=== PATIENT | female | born 1990 | race Caucasian/White ===

== ENCOUNTER 2018-06-08 11:20 | Day surgery (SDC) | payer BC, OTHER ==
[2018-06-05 09:56] LABS: HEMATOCRIT 44.1 % (36.0-47.0); HEMOGLOBIN 15.4 g/dL (12.0-15.5); MEAN CORPUSCULAR VOLUME 92 fl (80-97); PLATELET COUNT 245 10^3/uL (150-450); RED BLOOD COUNT 4.82 10^6/uL (3.72-5.28); RED CELL DISTRIBUTION WIDTH 12.5 % (11.5-14.0); WHITE BLOOD COUNT 7.6 10^3/uL (4.0-10.5)
[2018-06-05 10:02] LABS: APPEARANCE,URINE SLIGHTLY-CLOUDY; BILIRUBIN,URINE NEGATIVE (NEGATIVE); COLOR,URINE YELLOW; GLUCOSE, URINE NEGATIVE (NEGATIVE); KETONES,URINE NEGATIVE (NEGATIVE); LEUKOCYTE ESTERASE,URINE NEGATIVE (NEGATIVE); NITRITE,URINE NEGATIVE (NEGATIVE); PROTEIN,URINE NEGATIVE (NEGATIVE); URINE SPECIFIC GRAVITY 1.021; UROBILINOGEN,URINE NEGATIVE mg/dL (<2.0)
[~2018-06-08 11:20] MED LIST: BUPIVACAINE HCL 0.25% /EPINEPHRINE INJ/PF 30 ML SDV ONE
[2018-06-08] MEDS ORDERED: ONDANSETRON HCL INJ/PF 4 MG/2 ML SDV ONE (11:33)
[2018-06-08] MEDS ORDERED: DEXAMETHASONE SOD PHOSPHATE INJ 4 MG/1 ML VIAL ONE (11:33)
[2018-06-08] MEDS ORDERED: FENTANYL CITRATE INJ/PF 100 MCG/2 ML AMPUL ONE (11:33)
[2018-06-08] MEDS ORDERED: PROPOFOL INJ 200 MG/20 ML VIAL IV ONE (11:34)
[2018-06-08] MEDS ORDERED: HYDROMORPHONE HCL INJ/PF 2 MG/ML AMPULE ONE (11:34)
[2018-06-08] MEDS ORDERED: ACETAMINOPHEN 1,000 MG/100 ML RTUPB IV ONE (11:34)
[2018-06-08] MEDS ORDERED: MIDAZOLAM 2 MG/2 ML INJ ONE (11:38)
[2018-06-08] MEDS ORDERED: SILVER SULFADIAZINE 1% CREAM 25 GM ONE (12:03)
[2018-06-08] MEDS ORDERED: DIPHENHYDRAMINE HCL 50 MG/ML VIAL IV PRN (12:13)
[2018-06-08] MEDS ORDERED: OXYCODONE-ACETAMINOPHEN 5-325 MG TABLET PO PRN ×4 (12:13→14:19)
[2018-06-08] MEDS ORDERED: MEPERIDINE HCL/PF INJ 25 MG/1 ML DISP.SYRIN IV PRN (12:13)
[2018-06-08] MEDS ORDERED: PROMETHAZINE HCL INJ 25 MG/1 ML VIAL IV PRN ×2 (12:13)
[2018-06-08] MEDS ORDERED: FENTANYL CITRATE INJ/PF 100 MCG/2 ML AMPUL IV PRN ×3 (12:13)
[2018-06-08] MEDS ORDERED: PROMETHAZINE HCL INJ 25 MG/1 ML VIAL ONE (14:14)
[2018-06-08] MEDS ORDERED: MORPHINE SULFATE 10 MG/ML INJ IM PRN (14:17)
[2018-06-08] MEDS ORDERED: RINGERS SOLUTION,LACTATED 1,000 ML IV PRN (14:17)
[2018-06-08] MEDS ORDERED: IBUPROFEN 800 MG TABLET PO PRN (14:18)
[2018-06-08 16:47] VITALS: BP 110/65
--- NOTE | 2018-08-10 15:10 | OPERATIVE REPORT E ---
Operative Report NAME: MITRA SEARS : 1990 AGE: 28Y DATE OF SURGERY: 06/08/2018 ROOM: PREOPERATIVE DIAGNOSIS: LEFT BARTHOLIN'S GLAND CYST. POSTOPERATIVE DIAGNOSIS: LEFT BARTHOLIN'S GLAND CYST. OPERATION: Bartholin gland excision. SURGEON: FRED ABRAHAM M.D. ANESTHESIA: Dr. Jones with General. FINDINGS: A large 5.5 cm Bartholin cyst on the left labia tracking up into the labia majora. COMPLICATIONS: None. ESTIMATED BLOOD LOSS: 40 mL. SPECIMENS REMOVED: Left Bartholin cyst and gland. PROCEDURE: The patient was taken to the operating room, prepped and draped in normal sterile fashion in the dorsal lithotomy position. Under sterile conditions an in-and-out cath was performed with approximately 30 mL of clear urine. The labia was inspected and the gland was easily locatable due to its size. We then injected approximately 10 mL of lidocaine with epi along the planned incision line. I then used a #15 blade to score the mucosa above the gland and the cyst was easily locatable through the mucosa and it easily dissected away from the mucosa using Metzenbaum's. Following the outline of the cyst, I continued to dissect into the patient's bulbocavernosus muscle as well as the labia, again following the contours of the cyst until the cyst was completely amputatable which was done using Mayos. The cyst was then passed off of the field. The defect was then inspected and found to be quite deep, almost to the patient's gluteus muscle. Therefore, it was decided that I would close this in multiple layers. Beginning at the deepest aspect of the incision, I used 0-Vicryl and closed with several interrupted sutures on the first layer and then using graduated decreasing caliper of Vicryl suture closed the remaining layers. A total of about 5 layers was used, using interrupted stitches for the closure. The skin was then closed using 4-0 Vicryl in a subcuticular fashion. The defect was inspected. It was not swelling. It was watched for several minutes to make sure it was hemostatic and that there was no hematoma forming. The incision line was then covered with Silvadene cream to enhance wound healing. The patient was then taken to recovery in stable condition. Sponge, lap, and needle counts were correct x2. DICTATING PHYSICIAN: FRED ABRAHAM M.D. [id number] PHY#: [id number] ID: [id number] JOB#: [id number] ACCT: [id number] cc:FRED ABRAHAM M.D. >
== END 2018-06-08 17:00 | disposition home or self-care (01) ==
LOC: OROUT 11:20
PROVIDERS: ATTEND Obstetrics & Gynecology
DX: N75.0 Cyst of Bartholin's gland (principal); Z01.818 Encounter for other preprocedural examination
CPT/HCPCS: 36415; 87070; 87205; 85027; 81025; 87075; 81001; 88304 ×2; 56740; J2250; J3490; J1100; J1170; J2550; J2405; J2704; J0131; 940; J3010

== ENCOUNTER → 2019-06-08 | Outpatient (CLI) | payer BC, OTHER ==
--- NOTE | 2019-06-10 18:15 | WOMENS IMAGING REPORT ---
EXAM DESCRIPTION: U/S BREAST UNILATERAL, COMPL COMPLETED DATE/TIME: 06/08/2019 7:38 am REASON FOR STUDY: N64.52 NIPPLE DISCHARGE N64.52 NIPPLE DISCHARGE COMPARISON: None TECHNIQUE: Static and Realtime grayscale interrogation of the entire left breast(s) acquired. Select ed color doppler/spectral images saved to PACS. LIMITATIONS: None. FINDINGS: Masses:No cystic or solid masses identified Architecture:No alteration of normal morphology. No skin thickening. No edema. Other: None. IMPRESSION: No suspicious findings detected by ultrasound. BIRAD: 1 Negative. RECOMMENDATION: RECOMMENDED FOLLOW-UP: Follow-up as clinically indicated. COMMENT: The [employer] ([employer]) has developed recommendations for screening MRI of the breasts in certain patient populations, to be used in conjunction with mammography. Breast MRI s urveillance may be appropriate for women with more than 20% lifetime risk of developing breast cancer as determined by genetic testing, significant family history of the disease, or history of mantle r adiation for Hodgkins Disease. [employer] Practice Guidelines 2008. TECHNICAL DOCUMENTATION: FINDING NUMBER: (1) ASSESSMENT: (1) JOB ID: [id number] [employer]- All Rights Reserved Reading location - IP/workstation name: [email or web address]
== END ==
LOC: WI 07:29
PROVIDERS: ATTEND Midwife
DX: N64.52 Nipple discharge (principal); N64.59 Other signs and symptoms in breast
CPT/HCPCS: 76641

== ENCOUNTER → 2019-08-24 | Outpatient (CLI) | payer BC, OTHER ==
[2019-08-24 10:13] LABS: ABSOLUTE EOSINOPHILS # (AUTO) 0.1 10^3/uL (0.0-0.6); ABSOLUTE LYMPHOCYTES (AUTO) 1.5 10^3/uL (0.5-4.7); ABSOLUTE MONOCYTES (AUTO) 0.5 10^3/uL (0.1-1.4); ABSOLUTE NEUT (AUTO) 5.3 10^3/uL (1.7-8.2); BASOPHILS % (AUTO) 0.3 % (0-2); EOSINOPHILS % (AUTO) 0.9 % (0-6); HEMATOCRIT 37.3 % (36.0-47.0); HEMOGLOBIN 12.6 g/dL (12.0-15.5); LYMPHOCYTES % (AUTO) 20.5 % (13-45); MEAN CORPUSCULAR HGB CONC 33.8 g/dL (32.0-36.0); MEAN CORPUSCULAR VOLUME 83 fl (80-97); MONOCYTES % (AUTO) 6.8 % (3-13); PLATELET COUNT 240 10^3/uL (150-450); SEGMENTED NEUTROPHILS % (AUTO) 71.5 % (42-78); TOTAL CELLS COUNTED % (AUTO) 100 %; WHITE BLOOD COUNT 7.5 10^3/uL (4.0-10.5)
[2019-08-25 06:37] LABS: HEPATITIS C VIRUS AB <0.1 s/co ratio (0.0-0.9)
[2019-08-26 11:48] LABS: HEPATITS B SURFACE ANTIGEN Negative (Negative)
== END ==
LOC: LAB 09:21
PROVIDERS: ATTEND Advanced Practice Midwife
DX: Z34.81 Encounter for supervision of other normal pregnancy, first trimester (principal); Z13.29 Encounter for screening for other suspected endocrine disorder; Z11.3 Encounter for screening for infections with a predominantly sexual mode of transmission; Z13.0 Encounter for screening for diseases of the blood and blood-forming organs and certain disorders involving the immune mechanism
CPT/HCPCS: 36415; 83020; 84443; 85025; 86592; 86701; 86762; 86803; 86804; 86850; 86900; 86901; 87340